=== PATIENT | female | born 1965 | race American Indian/Alaskan Native ===

== ENCOUNTER 2018-04-23 10:23 | Day surgery (SDC) | payer OTHER ==
[~2018-04-23 10:23] MED LIST: NACL 0.9% 1000 ML 1,000 ML IV SCH
--- NOTE | 2018-04-23 12:00 | Anesthesia Day of Surgery ---
Anesthesia Day of Surgery - Day of Surgery Patient Examined: Yes Patient H&P Reviewed: Yes Patient is NPO: Yes Beta Blockers: No
--- NOTE | 2018-04-23 12:02 | Anesthesia Consultation ---
Anesthesia Consult and Med Hx - Airway Anesthetic Teeth Evaluation: Dentures (upper) ROM Head & Neck: Adequate Mental/Hyoid Distance: Adequate Mallampati Class: Class II Intubation Access Assessment: Probably Good - Pulmonary Exam CTA: Yes - Cardiac Exam Cardiac Exam: No Murmur - Pre-Operative Health Status ASA Pre-Surgery Classification: ASA2 Proposed Anesthetic Plan: MAC - Pulmonary Hx Smoking: No Hx Asthma: No Hx Respiratory Symptoms: No SOB: No COPD: No Home Oxygen Therapy: No Hx Pneumonia: No Hx Sleep Apnea: No - Cardiovascular System Hx Hypertension: No Hx Coronary Artery Disease: No Hx Heart Attack/AMI: No Hx Angina: No Hx Percutaneous Transluminal Coronary Angioplasty (PTCA): No Hx Cardia Arrhythmia: No Hx Pacemaker: No Hx Internal Defibrillator: No Hx Valvular Heart Disease: No Hx Heart Murmur: No Hx Peripheral Vascular Disease: No - Central Nervous System Hx Neuromuscular Disorder: No Hx Seizures: No CVA: No Hx Back Pain: Yes Hx Psychiatric Problems: No - Gastrointestinal Hx Ulcer: No Hx Gastroesophageal Reflux Disease: No - Endocrine Hx Renal Disease: No Hx End Stage Renal Disease: No Hx Cirrhosis: No Hx Liver Disease: No Hx Insulin Dependent Diabetes: No Hx Non-Insulin Dependent Diabetes: No Hx Thyroid Disease: No Hx Hypothyroidism: No Hx Hyperthyroidism: No - Other Systems Hx Alcohol Use: No Hx Substance Use: No Hx Cancer: No Hx Obesity: No - Additional Comments Anesthesia Medical History Comments: HX: Diverticilitis , constipaton and back pain and migraine
[2018-04-23] MEDS ORDERED: DIPRIVAN 10 MG/ML IV ONE ×2 (12:22)
[2018-04-23] MEDS ORDERED: WATER FOR IRRIG STERILE ONE (12:26)
[2018-04-23] MEDS ORDERED: WATER FOR IRRIG STERILE IR ONE (12:26)
--- NOTE | 2018-04-23 13:38 | Operative Report ---
Operative Report Operative Report: Date of procedure: 04/23/2018 Procedure: Colonoscopy with multiple Hot Biopsy polypectomies. Attending physician: Elan Richardson MD Acute Care Certified Nursing Assistant: Elan Richardson MD Indication: Patient is a 52-year-old female who presents for screening colonoscopy. Patient has a past history of colon polyps. A colonoscopy serves to evaluate patient for colorectal cancer screening. Consent: Informed consent was obtained after advising the patient and family regarding nature of this procedure, its indications, potential benefits as well as possible complications including but not limited to bleeding perforation and adverse reaction to medication, infection as well as other cardiopulmonary complications. An informed written and verbal consent was then obtained after due opportunity was provided for questions and answers. Monitoring: Patient was monitored continuously with pulse oximetry and electrocardiographic recordings as well as blood pressure recordings. Vital signs remained stable throughout this procedure with no untoward events. Preoperative assessment: Patient was assessed immediately prior to this procedure for capacity to tolerate monitored anesthesia care and moderate sedation as well as general anesthesia. Patient's ASA classification is 2, Mallampati class is 2, Hyomental distance is 3. Instrument: [employer] video colonoscope Medications: Propofol given intravenously in divided doses. For details please refer to anesthesia records. Description of procedure: Patient was placed in the left lateral decubitus position after achieving sedation, a digital rectal examination was performed following which the colonoscope was introduced into the anal verge and advanced to the cecum which was identified by the cecal valve, the appendiceal orifice, as well as by the cecal strap and direct transillumination. The colonoscope was subsequently withdrawn with careful inspection of all mucosal surfaces. Patient tolerated this procedure well and was subsequently taken to the recovery room. The following findings were noted. Findings: The preparation was excellent. The patient had diverticulosis of moderate severity involving the sigmoid and the descending colon. In the rectum , patient had a diminutive 5 mm flat polyp was removed by hot biopsy polypectomy and retrieved. In the sigmoid colon, patient had 4 diminutive flat polyps measuring between 5-7 mm. All polyps removed by hot biopsy polypectomy and retrieved completely. The rest of the examination to the cecum was normal. On the retroflexed view of the anal verge, patient had internal hemorrhoids. Impression: Multiple diminutive flat sigmoid colon polyps status post hot biopsy polypectomy. Rectal polyp status post hot biopsy polypectomy Diverticular disease of the colon Internal hemorrhoids. Plan: Follow-up pathology report High-fiber diet Repeat colonoscopy in 5 years.
[2018-04-23 13:52] VITALS: BP 131/70
--- NOTE | 2018-04-23 14:45 | Discharge Summary ---
Short Stay Discharge Plan Activity: advance as tolerated Weight Bearing Status: Weight Bear as Tolerated Diet: regular Additional Instructions: Post Sedation D/C Instructions When you return home you may resume your regular diet unless otherwise directed. -Go directly home from the hospital and rest quietly. You may resume normal activities tomorrow. -Do NOT drive, return to work, operate any machinery or make any important personal or business decisions today. -Do NOT drink any alcohol or take nerve or sleeping drugs. They add to the effects of the medicine still present in your body. Follow up with Dr. Richardson in 2 weeks to obtain pathology results and treatment plan. Follow up with: MARK LAI MD [Primary Care Provider] - 7 Days
== END 2018-04-23 10:24 | disposition home or self-care (01) ==
LOC: GIO 10:23
PROVIDERS: ATTEND Internal Medicine Gastroenterology
DX: K63.5 Polyp of colon (principal); K62.1 Rectal polyp; K57.30 Diverticulosis of large intestine without perforation or abscess without bleeding; K59.00 Constipation, unspecified; K64.8 Other hemorrhoids; G43.909 Migraine, unspecified, not intractable, without status migrainosus; Z88.0 Allergy status to penicillin; Z86.010 Personal history of colon polyps; Z91.018 Allergy to other foods
CPT/HCPCS: 45384; 88305; J2704; J7030